=== PATIENT | male | born 1980 | race Caucasian/White ===

== ENCOUNTER 2017-12-04 18:32 | Emergency (ER) | payer OTHER ==
--- NOTE | 2017-12-04 18:51 | EDM.PDOC ---
ED HPI GENERAL MEDICAL PROBLEM - General Chief Complaint: Respiratory Problem Stated Complaint: BRONCHITIS Time Seen by Provider: 12/04/17 18:34 - History of Present Illness INITIAL COMMENTS - FREE TEXT/NARRATIVE: HISTORY AND PHYSICAL: History of present illness: Patient 37-year-old male presents with concern of cough congestion and fever 1 day he has been exposed to influenza denies influenza immunization denies diarrhea or other concern patient is a smoker Review of systems: As per history of present illness and below otherwise all systems reviewed and negative. Past medical history: As per history of present illness and as reviewed below otherwise noncontributory. Surgical history: As per history of present illness and as reviewed below otherwise noncontributory. Social history: No reported history of drug or alcohol abuse. Family history: As per history of present illness and as reviewed below otherwise noncontributory. Physical exam: HEENT: Atraumatic, normocephalic, pupils reactive, negative for conjunctival pallor or scleral icterus, mucous membranes moist, throat clear, neck supple, nontender, trachea midline. Lungs: Clear to auscultation, breath sounds equal bilaterally, chest nontender. Heart: S1S2, regular, negative for clicks, rubs, or JVD. Abdomen: Soft, nondistended, nontender. Negative for masses or hepatosplenomegaly. Negative for costovertebral tenderness. Pelvis: Stable nontender. Genitourinary: Deferred. Rectal: Deferred. Extremities: Atraumatic, negative for cords or calf pain. Neurovascular unremarkable. Neuro: Awake, alert, oriented. Cranial nerves II through XII unremarkable. Cerebellum unremarkable. Motor and sensory unremarkable throughout. Exam nonfocal. Diagnostics: Influenza screen chest x-ray Therapeutics: None Impression: 1 viral syndrome Definitive disposition and diagnosis as appropriate pending reevaluation and review of above. Head Pain Score (Numeric/FACES): 6 - Related Data Allergies Allergy/AdvReac Type Severity Reaction Status Date / Time No Known Allergies Allergy Verified 12/04/17 18:41 Home Meds: Home Meds Gabapentin [Neurontin] 800 mg PO BID 12/04/17 [History] Hydrocodone/Acetaminophen [Hydrocodon-Acetaminophn 10-325] 12/04/17 [History] Ibuprofen/Famotidine [Duexis 800-26.6 MG] 12/04/17 [History] Past Medical History Musculoskeletal History: Reports: Back Pain, Chronic Other Musculoskeletal History: disc surgery and fusion Social & Family History - Family History Family Medical History: Noncontributory - Tobacco Use Smoking Status *Q: Light Tobacco Smoker Years of Tobacco use: 10 Packs/Tins Daily: 0.1 - Caffeine Use Caffeine Use: Reports: None - Recreational Drug Use Recreational Drug Use: No ED ROS GENERAL - Review of Systems Review Of Systems: ROS reveals no pertinent complaints other than HPI. ED EXAM, GENERAL - Physical Exam Exam: See Below (See dictation) Course - Vital Signs Last Recorded V/S: Last Vital Signs Temp 36.9 C 12/04/17 18:37 Pulse 78 12/04/17 18:37 Resp 18 12/04/17 18:37 BP 121/68 12/04/17 18:37 Pulse Ox 96 12/04/17 18:37 - Orders/Labs/Meds Orders: Active Orders 24 hr Category Date Time Status Chest 2V [CR] Stat Exams 12/04/17 18:38 Ordered Departure - Departure Time of Disposition: 19:59 Disposition: Home, Self-Care 01 Condition: Good Clinical Impression: Influenza - Discharge Information Referrals: PCP,Not In Area [Primary Care Provider] - Forms: ED Department Discharge - My Orders Last 24 Hours: My Active Orders 12/04/17 18:38 Chest 2V [CR] Stat - Assessment/Plan Last 24 Hours: My Active Orders 12/04/17 18:38 Chest 2V [CR] Stat
--- NOTE | 2017-12-05 17:05 | CR ---
EXAM DATE: 12/04/17 PATIENT'S AGE: 37 Patient: YOBANI MAYERS Facility: [place], [place] Site . Site : [id number] Study: XRay Chest [id number]/28/2018 8:01:12 PM Ordering Physician: Doctor Juarez Final Report: INDICATION: Pain/shortness of breath. TECHNIQUE: PA and lateral chest x-ray. FINDINGS: Heart size normal. Lungs clear without infiltrate or consolidation. Chest otherwise negative without acute disease. Dictated by José Antonio Rodas MD @ Dec 04 2017 8:09PM (Electronic Signature) Report Signed by Proxy. YANET
== END 2017-12-04 20:11 | disposition home or self-care (01) ==
LOC: MW.ED 18:32
DX: J10.1 Influenza due to other identified influenza virus with other respiratory manifestations (principal); B34.9 Viral infection, unspecified; F17.210 Nicotine dependence, cigarettes, uncomplicated
CPT/HCPCS: 71046; 71046-26; 87804; 99283